=== PATIENT | female | born 1955 | race Caucasian/White ===

== ENCOUNTER → 2017-04-23 | Outpatient (CLI) | payer OTHER | LOC: COL.RAD 10:37 | DX: J32.0 Chronic maxillary sinusitis (principal) ==

== ENCOUNTER → 2017-06-06 | Outpatient (CLI) | payer OTHER | LOC: COL.VAS 08:39 | DX: I36.1 Nonrheumatic tricuspid (valve) insufficiency (principal); I37.1 Nonrheumatic pulmonary valve insufficiency; I50.9 Heart failure, unspecified ==

== ENCOUNTER → 2017-06-26 | Outpatient (CLI) | payer OTHER | LOC: COL.PUL 07:04 | DX: J45.52 Severe persistent asthma with status asthmaticus (principal) ==

== ENCOUNTER 2017-09-24 15:00 | Outpatient (RCR) | payer OTHER ==
[2017-09-22 14:30] VITALS: BP 100/60; PULSE 102; TEMP 98.4
[~2017-09-24] VITALS: Ht 162.6 cm; Wt 110.5 kg
[~2017-09-24 15:00] MED LIST: ANORO IH; CALCIUM CARBON650 M2 PO; GLUCOPHAGE500 MG/TAB PO; HYZAAR 12.5 MG-1 TAB PO; IPRATROPIUM BROM3 M1 IH; K-DUR 10 MEQ T10 MEQ PO; LANTUS100 U/ML SQ; LASIX 20MG TABL20 MG PO; MAG-OX 400400 MG/TAB PO; MASON NATURAL2000 IU PO; NOVOLOG 100U100 U/M1 SQ; ONE DAILY1 TA1 PO; PREDNISONE10 MG PO; QVAR REDIHALE10.6 G1 IH; SINGULAIR 110 MG/TAB PO; VENTOLIN0.09 MG IH; VITAMIN A10k PO; VITAMIN E1000 U/CAP PO
[2017-09-24 15:46] VITALS: BP 144/79; PULSE 103; TEMP 98.8
== END 2017-09-24 17:24 | disposition home or self-care (01) ==
LOC: EUO 15:00
DX: J45.50 Severe persistent asthma, uncomplicated (principal); Z79.899 Other long term (current) drug therapy
CPT/HCPCS: J2182

== ENCOUNTER 2017-10-22 15:01 | Outpatient (CLI) | payer OTHER ==
[~2017-10-22] VITALS: Ht 162.6 cm; Wt 110.4 kg
[2017-10-22 15:45] VITALS: BP 156/77; PULSE 65; TEMP 98.8
== END 2017-10-22 15:53 | disposition home or self-care (01) ==
LOC: EUO 15:01
DX: Z79.899 Other long term (current) drug therapy (principal)
CPT/HCPCS: J2182

== ENCOUNTER 2017-11-19 14:03 | Outpatient (CLI) | payer OTHER ==
[~2017-11-19] VITALS: Ht 162.6 cm; Wt 110.6 kg
[2017-11-19 14:32] VITALS: BP 137/68; PULSE 108; TEMP 97.5
== END 2017-11-19 15:06 | disposition home or self-care (01) ==
LOC: EUO 14:03
DX: J45.50 Severe persistent asthma, uncomplicated (principal); Z79.899 Other long term (current) drug therapy
CPT/HCPCS: J2182

== ENCOUNTER 2017-12-15 13:04 | Outpatient (CLI) | payer OTHER ==
[~2017-12-15] VITALS: Ht 162.6 cm; Wt 110.5 kg
[2017-12-15 13:44] VITALS: BP 110/62; PULSE 93; TEMP 98.3
== END 2017-12-15 13:54 | disposition home or self-care (01) ==
LOC: EUO 13:04
DX: J45.50 Severe persistent asthma, uncomplicated (principal); Z79.899 Other long term (current) drug therapy
CPT/HCPCS: J2182

== ENCOUNTER 2018-01-12 11:14 | Outpatient (CLI) | payer OTHER ==
[~2018-01-12] VITALS: Ht 162.6 cm; Wt 111.1 kg
[2018-01-12] MEDS ORDERED: GINKGO60 MG PO (11:36)
[2018-01-12] MEDS ORDERED: VITAMIN C500 MG PO (11:36)
[2018-01-12 11:42] VITALS: BP 128/49; PULSE 87; TEMP 97.6
[2018-01-12] MEDS ORDERED: 00186-0370-20 IH (11:42)
== END 2018-01-12 11:56 | disposition home or self-care (01) ==
LOC: EUO 11:14
DX: J45.50 Severe persistent asthma, uncomplicated (principal); Z79.899 Other long term (current) drug therapy
CPT/HCPCS: J2182

== ENCOUNTER 2018-02-16 11:40 | Outpatient (CLI) | payer OTHER ==
[~2018-02-16] VITALS: Ht 162.6 cm; Wt 109.0 kg
[~2018-02-16 11:40] MED LIST changes: +00186-0370-20 IH; +GINKGO60 MG PO; +VITAMIN C500 MG PO
[2018-02-16 12:30] VITALS: BP 133/59; PULSE 80; TEMP 98.6
== END 2018-02-16 16:00 | disposition home or self-care (01) ==
LOC: EUO 11:40
DX: J45.50 Severe persistent asthma, uncomplicated (principal); Z79.899 Other long term (current) drug therapy
CPT/HCPCS: J2182

== ENCOUNTER 2018-03-16 14:13 | Outpatient (CLI) | payer OTHER ==
[~2018-03-16] VITALS: Ht 162.6 cm; Wt 112.7 kg
[2018-03-16 15:27] VITALS: BP 122/59; PULSE 81; TEMP 98
== END 2018-03-16 15:28 | disposition home or self-care (01) ==
LOC: EUO 14:13
DX: J45.50 Severe persistent asthma, uncomplicated (principal); Z79.899 Other long term (current) drug therapy
CPT/HCPCS: J2182

== ENCOUNTER 2018-04-13 14:00 | Outpatient (CLI) | payer OTHER ==
[~2018-04-13] VITALS: Ht 162.6 cm; Wt 109.0 kg
[2018-04-13] MEDS ORDERED: SPIRIVA RESPIMAT4 GM IH (14:14)
[2018-04-13 14:15] VITALS: BP 128/73; PULSE 91; TEMP 98
--- NOTE | 2018-04-13 15:25 | NUR ---
Pt herminia Velasco well. Pt left unit per ambulation with daughter.
== END 2018-04-13 15:26 | disposition home or self-care (01) ==
LOC: EUO 14:00
DX: Z79.899 Other long term (current) drug therapy (principal)
CPT/HCPCS: J2182

== ENCOUNTER → 2018-04-23 | Outpatient (CLI) | payer OTHER ==
[~2018-04-23] MED LIST changes: +SPIRIVA RESPIMAT4 GM IH
== END ==
LOC: COL.PUL 13:39
DX: J45.50 Severe persistent asthma, uncomplicated (principal); Z87.891 Personal history of nicotine dependence

== ENCOUNTER 2018-05-11 13:08 | Outpatient (CLI) | payer OTHER ==
[~2018-05-11] VITALS: Ht 162.6 cm; Wt 105.8 kg
[2018-05-11 13:52] VITALS: BP 102/53; PULSE 94; TEMP 98.5
== END 2018-05-11 15:00 ==
LOC: EUO 13:08
DX: Z79.899 Other long term (current) drug therapy (principal)
CPT/HCPCS: J2182

== ENCOUNTER 2018-06-08 13:00 | Outpatient (CLI) | payer OTHER ==
[~2018-06-08] VITALS: Ht 162.6 cm; Wt 103.9 kg
[2018-06-08 13:57] VITALS: BP 116/60; PULSE 84; TEMP 98.1
== END 2018-06-08 13:58 | disposition home or self-care (01) ==
LOC: EUO 13:00
DX: Z79.899 Other long term (current) drug therapy (principal)
CPT/HCPCS: J2182

== ENCOUNTER → 2018-07-13 | Outpatient (CLI) | payer OTHER | LOC: COL.RAD 16:53 | DX: S59.901A Unspecified injury of right elbow, initial encounter (principal) ==

== ENCOUNTER → 2021-01-18 | Outpatient (CLI) | payer OTHER | LOC: MC.RAD 13:30 | DX: Z12.31 Encounter for screening mammogram for malignant neoplasm of breast (principal); Z78.0 Asymptomatic menopausal state ==